=== PATIENT | male | born 1990 | race Caucasian/White ===

== ENCOUNTER 2022-08-16 07:48 | Emergency (ER) | payer OTHER ==
[2022-08-16 08:04] VITALS: BP 122/77; PULSE 78; RESP 20; TEMP 97.3; BMI 38.0
== END 2022-08-16 10:25 | disposition home or self-care (01) ==
LOC: JERFT 07:48
DX: J02.9 Acute pharyngitis, unspecified (principal)
CPT/HCPCS: 0241U-QW; 87651; 99283-25